=== PATIENT | male | born 1940 | race Caucasian/White ===

== ENCOUNTER 2017-04-15 19:59 | Inpatient (IN) ==
[2017-04-15] MEDS ORDERED: LEVOFLOXACIN 750 MG TABLET PO STA (20:55)
[2017-04-15] MEDS ORDERED: SODIUM CHLORIDE 0.9% 500 ML IV STA (20:55)
[2017-04-15 21:10] LABS: Basophils % 0.1 % (0.0-0.8); Hematocrit 39.2 VOL% (42.0-52.0); Hemoglobin 13.8 GM/DL (14.0-18.0); Immature Granulocytes Absolute 0.16 #; Lymphocytes # 0.9 10*3/uL (1.4-4.0); Lymphocytes % 5.6 % (21.2-54.2); Mean Corpuscular HGB Conc 35.2 GM/DL (32-36); Mean Corpuscular Hemoglobin 31 PG (27-34); Mean Corpuscular Volume 87.5 FL (87-102); Mean Platelet Volume 11.1 FL (9.6-12.0); Monocytes % 6.4 % (1.7-12.7); Neutrophils # 13.9 10*3/uL (1.4-7.4); Neutrophils % 86.9 % (38.7-73.9); Platelet Count 139 T/CUMM (130-400); Red Blood Count 4.48 MC/CUMM (3.8-5.5); Red Cell Distribution Width 12.5 % (9.3-17.3)
--- NOTE | 2017-04-15 21:12 | XRay Report ---
Portable chest July 15, 2017 at 2056 hours Indication: Shortness of breath, cough, fever Comparison: February 15, 2014 Findings: Cardiomediastinal contours are normal. Chronic interstitial changes bilaterally. No superimposed consolidative or congestive process. No acute osseous abnormalities. Visualized upper abdomen demonstrates no acute pathology. Impression: No acute cardiopulmonary findings PROCEDURE INTERPRETED AT [facility] DEPARTMENT OF RADIOLOGY Final Report Signed by: Maurice Mckenzie
[2017-04-15 21:22] LABS: PT Patient Result 11.1 SECS
[2017-04-15 21:41] LABS: Albumin 3.6 G/DL (3.4-5.0); Bilirubin,Total 0.8 MG/DL (0.2-1.0); Calcium 8.8 MG/DL (8.5-10.1); Osmolality,Calculated 285.3 MOS/KG (273-304); Potassium 3.6 MMOL/L (3.5-5.1); Total Protein 6.4 G/DL (6.4-8.3)
[2017-04-15] MEDS ORDERED: LEVOFLOXACIN INJ 750 MG in PREMIX 1 EACH IV STA (21:45)
[2017-04-15] MEDS ORDERED: LEVOFLOXACIN INJ 150 ML IV ONE (21:48)
--- NOTE | 2017-04-15 22:31 | Emergency Department Note ---
Shady Orr Brooke, am scribing for, and in the presence of, Lex Senior MD 21:06. Parrish Orr Frederick, MD, personally performed the services described in this documentation, ascribed by Jeanie Caruso in my presence, and it is both accurate and complete . Arrival - Arrival Chief Complaint: Fever Stated Complaint: Fever ED Nursing Triage Note: Pt was at home when he began having nausea and vomiting today around 3:30 pm. Pt was also having chills. Temp was 102.5 and fever went away after two tylenol. Pt also has redness to his left lower extremity that started today. Filters Assembler stated that patient had altered mental status at home but he returned to neuro baseline after being given NS. Mode of Arrival: Stretcher Limitations: No Limitations Source: Patient, Significant other, EMS, RN Notes Reviewed Time Seen by Provider: 04/15/17 20:43 - History of Present Illness HPI Narrative: Patient is a 76 year old male brought into the ED by EMS with c/o nausea and vomiting that started today. Patient has vomited two times. says he did not have fever, earlier today, but EMS reported that he had a temperature of 102.5. Patient's temperature during triage was 101. Patient says he has had the chills and is shaking all over. Patient has a productive cough with white mucous. He started having erythema to the left lower leg today. says she gave Patient some Tylenol around 1530 today. Patient denies having any dysuria, back pain, abdominal pain,, or calf pain. Family says Patient had a kidney infection, in January, and had cellulitis develop in his legs. Patient had to receive IV abx. He says he did have abdominal CT, two weeks go, and says he has an extended bladder and enlarged prostate. Patient has been having nocturia about three times a night. He has PMHx of HTN, peripheral neuropathy, and diabetes. Patient's Urologist is Dr. Alcocer. His Primary Care Provider is Amber Crandall. Allergies/Adverse Reactions: Allergies Allergy/AdvReac Type Severity Reaction Status Date / Time No Known Allergies Allergy Unverified 04/15/17 20:18 Home Medications: Home Medications Medication Instructions Recorded Confirmed Type Aspirin EC Tab 81 mg PO DAILY 04/15/17 04/15/17 History Furosemide Tab [Lasix Tab] 40 mg PO DAILY 04/15/17 04/15/17 History Glimepiride 4 mg PO BID 04/15/17 04/15/17 History Latanoprost [Latanoprost 0.005 % 1 drop BOTH EYES BEDTIME 04/15/17 04/15/17 History Oph Soln] Memantine [Namenda] 10 mg PO BID 04/15/17 04/15/17 History Potassium Chloride 20 meq PO DAILY 04/15/17 04/15/17 History Pravastatin Sodium 40 mg PO BEDTIME 04/15/17 04/15/17 History Pregabalin [Lyrica] 150 mg PO BID 04/15/17 04/15/17 History Rivastigmine Tartrate 3 mg PO BID 04/15/17 04/15/17 History [Rivastigmine] Sertraline HCl 50 mg PO BEDTIME 04/15/17 04/15/17 History Tamsulosin HCl 0.4 mg PO DIRECTED 04/15/17 04/15/17 History amLODIPine [Norvasc] 2.5 mg PO DAILY 04/15/17 04/15/17 History metFORMIN [Glucophage] 500 mg PO BID W/MEALS 04/15/17 04/15/17 History Review of System - Review of System 12 point system: reviewed and no additional remarkable complaints except as stated - Review of System Constitutional: Present: chills, fever, other (shaking all over) Respiratory: Absent: respiratory distress Gastrointestinal: Present: nausea, vomiting Genitourinary male: Present: other (nocturia) Skin: Present: other (erythema left lower leg). Absent: rash Medical,Surgical,& Family Hx - Medical History Cardio: History of: Hypertension Neurology: History of: Peripheral Neuropathy Endocrine: History of: Diabetes Mellitus (IDDM), Diabetes Mellitus (NIDDM) - Social History Smoking Status: Never smoker Frequency of Alcohol Use: None Type of Drug Use: None Exam Vital Signs: Vital Signs Temperature 97.5 F L 04/16/17 00:58 Pulse Rate 87 04/16/17 00:58 Respiratory Rate 18 04/16/17 00:58 Blood Pressure 106/57 04/16/17 00:58 O2 Sat by Pulse Oximetry 93 L 04/15/17 20:09 - General General appearance: alert, in no apparent distress - Head Head exam: Present: atraumatic, normocephalic - Eye Eye exam: Present: normal appearance, PERRL, EOMI - ENT ENT exam: Present: normal exam - Neck Neck exam: Present: normal inspection - Chest Chest inspection: Present: normal inspection, symmetric chest wall rise - Respiratory Respiratory exam: Present: normal lung sounds bilaterally - Cardiovascular Cardiovascular exam: Present: regular rate, normal rhythm, normal heart sounds. Absent: murmur - Abdominal Exam Abdominal exam: Present: soft, normal bowel sounds. Absent: distention, tenderness - Extremities Exam Extremities exam: Present: other (Negative trinidad's sign. Good pulses.) - Back Exam Back exam: Present: normal inspection. Absent: CVA tenderness (R), CVA tenderness (L) - Neurological Exam Neurological exam: Present: alert, oriented X3 - Psychiatric Psychiatric exam: Present: normal affect, normal mood - Skin Skin exam: Present: warm, dry, intact, other (Mild erythema left leg. Febrile.) Course Course Narrative: The patient had a white count of 16,000 and an unremarkable urinalysis. The x- ray of the chest did not show any infiltrates. The patient's fever may be secondary to his cellulitis. He was given Levaquin IV. He is now being given vancomycin IV. He will be admitted for further evaluation and treatment. I discussed the patient with the hospitalist. Results - Labs CBC & BMP: 04/15/17 21:01 04/15/17 21:01 Lab Results: I have reviewed the patients labs Labs: Laboratory Tests 04/15/17 04/15/17 21:01 21:01 WBC 16.0 H RBC 4.48 Hgb 13.8 L Hct 39.2 L MCV 87.5 MCH 31 MCHC 35.2 RDW 12.5 Plt Count 139 MPV 11.1 Neut % (Auto) 86.9 H Lymph % (Auto) 5.6 L [place] % (Auto) 6.4 Eos % (Auto) 0.0 Baso % (Auto) 0.1 Neut # (Auto) 13.9 H Lymph # (Auto) 0.9 L [place] # (Auto) 1.0 H Eos # (Auto) 0.0 Baso # (Auto) 0.0 Immature Gran % 1.0 Nucleated RBC % 0.0 Immature Gran # 0.16 Nucleated RBCs # 0.00 Immature Plt Fraction 0.0 INR 1.0 PT Patient/Control Mix 11.1 Laboratory Tests 04/15/17 21:01 Sodium 141 Potassium 3.6 Chloride 104 Carbon Dioxide 28 Anion Gap 12.6 BUN 21 H Creatinine 1.30 GFR Calculation 66 BUN/Creatinine Ratio 16.00 Glucose 137 H Calculated Osmolality 285.3 Calcium 8.8 Total Bilirubin 0.80 AST 21 ALT 21 Alkaline Phosphatase 82 Lactate Dehydrogenase 203 C-Reactive Protein 0.91 H Total Protein 6.4 Albumin 3.6 Globulin 2.8 Albumin/Globulin Ratio 1.2 Amylase 23 L Lipase 82.0 Microbiology 04/15/17 22:15 Throat Group A Streptococcus Rapid Screen - Final Negative for Grp A Strep Ag 04/15/17 22:14 Nasal Aspirate Influenza Types A,B Antigen (CARLOS) - Final Negative for Influenza A Ag Negative for Influenza B Ag Laboratory Tests 04/15/17 21:05 Urine Color Yellow Urine Appearance Slightly hazy Urine pH 5.0 Ur Specific [place] 1.012 Urine Protein Negative Urine Glucose (UA) Negative Urine Ketones Negative Urine Blood Negative Urine Nitrate Negative Urine Bilirubin Negative Urine Urobilinogen < 2.0 H Urine Leukocytes Negative Urine RBC 2 Urine WBC 2 Hyaline Casts 5 Urine Mucus Many Urine Sperm Many Ur Culture Indicated? Not indicated - Diagnostic Findings Procedure: Chest x-ray: report reviewed by me (No acute cardiopulmonary findings.) Disposition Clinical Impression: Cellulitis, Fever, Sepsis
[2017-04-15 23:55] LABS: Apearance,Urine Slightly Hazy (Clear); Bilirubin,Urine Negative (Negative); Blood, Urine Negative (Negative); Glucose,Urine (UA) Negative (Negative); Hyaline Casts,Urine 5 /LPF (0-3); Ketones,Urine Negative (Negative); Mucus,Urine Many /LPF (Occasional); Nitrite,Urine Negative (Negative); Protein,Urine Negative; RBC,Urine 2 /HPF (0-4); Sperm,Urine Many /HPF (Negative); Urine Color Yellow (Yellow); Urine Specific Gravity 1.012 (1.001-1.035); Urine Urobilinogen < 2.0 EU/DL (0.2-1.0); WBC,Urine 2 /HPF (0-6)
[2017-04-16] MEDS ORDERED: VANCOMYCIN (NICU) 1,000 MG in SYRINGE 1 EACH IV SCH (01:00)
[2017-04-16] MEDS ORDERED: VANCOMYCIN INJ 1,000 MG in SODIUM CHLORIDE 0.9% 250 ML IV SCH (01:30)
[2017-04-16] MEDS ORDERED: ACETAMINOPHEN 325 MG TABLET PO PRN (02:49)
[2017-04-16] MEDS ORDERED: DEXTROSE 50% 25 GM/50 ML SYRINGE IV PRN (02:49)
[2017-04-16] MEDS ORDERED: ONDANSETRON 4 MG/2 ML VIAL IV PRN (02:49)
[2017-04-16] MEDS ORDERED: GLUCAGON 1 MG VIAL IM PRN (02:49)
[2017-04-16] MEDS ORDERED: BISACODYL 5 MG TABLET PO PRN (02:49)
--- NOTE | 2017-04-16 03:13 | Hospitalist History & Physical ---
Assessment and Plan - Time spent with patient Time spent with patient: Greater than 30 minutes (1) Sepsis Status: Acute Assessment and plan: Admit to hospitalist services. Levaquin and Vancomycin given in ED. Clindamycin 600 mg IV Q8 hours. Ceftriaxone 2 gm IV Q24 hours. ASO titer. Blood cultures performed in ED; follow. Repeat CBC in AM. Current Visit: Yes (2) Cellulitis Status: Acute Assessment and plan: As above. Current Visit: Yes (3) Fever Status: Acute Assessment and plan: As above. Tylenol 650 mg PO Q4 hours PRN. Current Visit: Yes (4) Hypertension Status: Chronic Assessment and plan: BP stable right now. Hold home BP meds for now. Monitor. Current Visit: Yes (5) Diabetes Status: Chronic Assessment and plan: Accuchecks ACHS. Continue home meds. Metformin 1000 mg BID. Glimepiride 4 mg PO BID. SSI ACHS with Humulin R. Recheck BMP in am. Diabetic diet. Current Visit: Yes (6) DVT prophylaxis Status: Acute Assessment and plan: Lovenox 40 mg SQ daily. Current Visit: Yes History of Present Illness Chief complaint: sepsis, cellulitis History of present illness: Mr. Russell is a 76 year old male with a past medical history of NIDDM, HTN, and peripheral neuropathy who presented to the ED today with complaints of fever, vomiting x 3 episodes, chills, and confusion that started around lunchtime the day prior. He denies cough, MOTA, sore throat, diarrhea, and abdominal pain. In the ED, his urine was unremarkable, but he was found to have LLE redness and warmth. His son states that the redness and warmth was not present prior to the onset of chills and fever. Hospitalist services were consulted, and the patient will be admitted for further evaluation and treatment. Home Medications Medication Instructions Recorded Confirmed Type Aspirin EC Tab 81 mg PO DAILY 04/15/17 04/16/17 History Furosemide Tab [Lasix Tab] 40 mg PO DAILY 04/15/17 04/16/17 History Glimepiride 4 mg PO BID 04/15/17 04/16/17 History Latanoprost [Latanoprost 0.005 % 1 drop BOTH EYES BEDTIME 04/15/17 04/16/17 History Oph Soln] Memantine [Namenda] 10 mg PO BID 04/15/17 04/16/17 History Potassium Chloride 20 meq PO DAILY 04/15/17 04/16/17 History Pravastatin Sodium 40 mg PO BEDTIME 04/15/17 04/16/17 History Pregabalin [Lyrica] 150 mg PO BID 04/15/17 04/16/17 History Rivastigmine Tartrate 1.5 mg PO BID 04/15/17 04/16/17 History [Rivastigmine] Sertraline HCl 50 mg PO BEDTIME 04/15/17 04/16/17 History Tamsulosin HCl 0.4 mg PO DIRECTED 04/15/17 04/16/17 History amLODIPine [Norvasc] 2.5 mg PO BID 04/15/17 04/16/17 History metFORMIN [Glucophage] 1,000 mg PO BID W/MEALS 04/15/17 04/16/17 History Allergies Allergy/AdvReac Type Severity Reaction Status Date / Time No Known Allergies Allergy Unverified 04/15/17 20:18 Medical,Surgical,& Family Hx - Medical History Cardio: History of: Hypertension Neurology: History of: Peripheral Neuropathy No history of: Cerebrovascular Accident Endocrine: History of: Diabetes Mellitus (NIDDM) Respiratory: No history of: Asthma, COPD - Surgical History Additional Surgical History: Hemorrhoidectomy - Family History Family History: Reports;: Family Diabetes, Family Hypertension - Social History Smoking Status: Never smoker Have you smoked in the last 12 months: No Frequency of Alcohol Use: None Type of Drug Use: None Marital Status: Lives With:: Spouse Functional capacity: independent ambulation 12 point system: reviewed and no additional remarkable complaints except as stated - Constitutional Constitutional: Present: chills, fever(s), weakness - EENT Eyes: Absent: blurry vision, diplopia Ears: Absent: decreased hearing, ear discharge Nose, mouth and throat: Absent: headache(s), nasal congestion, sore throat - Cardiovascular Cardiovascular: Absent: chest pain at rest, chest pain with activity, dyspnea, edema, orthopnea, palpitations - Respiratory Respiratory: Absent: cough, dyspnea, wheezing - Gastrointestinal Gastrointestinal: Present: constipation, nausea, vomiting. Absent: abdominal pain, diarrhea - Genitourinary Genitourinary: Absent: dysuria, flank pain - Musculoskeletal Musculoskeletal: Present: muscle weakness, other (redness and warmth of LLE). Absent: arthralgias, back pain, joint swelling, myalgias - Neurological Neurological: Present: confusion. Absent: numbness, paresthesias - Psychiatric Psychiatric: Absent: anxiety, depression - Endocrine Endocrine: Absent: cold intolerance, polydipsia, polyphagia, polyuria - Hematologic/Lymphatic Hematologic/Lymphatic: Absent: easy bleeding, easy bruising Exam - Constitutional Vitals: Period Temp Pulse Resp BP Sys/Stevenson Pulse Ox Last 24 Hr 97.5 F-101 F 87-92 18-23 106-129/57-67 93 Exam: Constitutional System: Febrile. Awake, alert and oriented x 3. No distress. No tremulousness. Head: Normocephalic, atraumatic. Ears, Nose and Throat System: No pain or tenderness. No epistaxis or discharge Eyes System: Pupils equal, round, and reactive. Extraocular muscles intact. Neck: Supple, without adenopathy, No jugular venous distention. No thyromegaly, neck mass, or prior surgery apparent. Respiratory System: Chest clear to auscultation. Cardiovascular System: Heart with regular rate and rhythm. No murmur. GI System: Abdomen soft, nontender. Normo active bowel sounds present. Musculoskeletal System: LLE redness and warmth noted; non-tender. Limbs with no pedal edema. Full distal pulses. Normal capillary refill. Neurological System: No discernable sensory deficit. No aphasia Psychiatric System: Conversation is rational Results - Labs CBC & BMP: 04/15/17 21:01 04/15/17 21:01 Lab Results: I have reviewed the past 24 hour labs - Diagnostic Findings Procedure: Chest x-ray: report reviewed by me (Report reviewed. No acute cardiopulmonary findings. )
[2017-04-16] MEDS: PREGABALIN 75 MG CAPSULE PO SCH ×3 (03:42→21:33)
[2017-04-16] MEDS ORDERED: VANCOMYCIN INJ 500 MG in SODIUM CHLORIDE 0.9% 100 ML IV ONE (05:00)
[2017-04-16] MEDS: CLINDAMYCIN INJ 600 MG in PREMIX 1 EACH IV SCH ×3 (05:52→21:31)
[2017-04-16 07:12] LABS: Basophils % 0.2 % (0.0-0.8); Hematocrit 36.5 VOL% (42.0-52.0); Hemoglobin 12.8 GM/DL (14.0-18.0); Immature Granulocytes % 1.7 %; Immature Granulocytes Absolute 0.27 #; Lymphocytes # 0.5 10*3/uL (1.4-4.0); Lymphocytes % 3.2 % (21.2-54.2); Mean Corpuscular HGB Conc 35.1 GM/DL (32-36); Mean Corpuscular Hemoglobin 31 PG (27-34); Mean Corpuscular Volume 88.4 FL (87-102); Mean Platelet Volume 11.3 FL (9.6-12.0); Monocytes # 0.6 10*3/uL (0.11-0.8); Monocytes % 3.4 % (1.7-12.7); Neutrophils # 14.7 10*3/uL (1.4-7.4); Neutrophils % 91.5 % (38.7-73.9); Platelet Count 124 T/CUMM (130-400); Red Blood Count 4.13 MC/CUMM (3.8-5.5); Red Cell Distribution Width 12.8 % (9.3-17.3); White Blood Count 16.1 T/CUMM (4-12)
[2017-04-16 07:37] LABS: Band Neutrophils 6 % (0-10); Giant Platelets Few; Hypochromasia 1+; Lymphocytes 4 % (20-55); Ovalocytes Slight; Platelet Estimate Normal; Segmented Neutrophils 88 % (50-85); Total Cells Counted 100
[2017-04-16 07:42] LABS: Calcium 8.1 MG/DL (8.5-10.1); Osmolality,Calculated 281.7 MOS/KG (273-304); Potassium 3.6 MMOL/L (3.5-5.1)
[2017-04-16] MEDS ORDERED: metFORMIN 500 MG TABLET PO SCH (08:00)
[2017-04-16] MEDS: INSULIN REGULAR 100 UNIT/ML SUBCUT SCH ×4 (08:31→21:31)
[2017-04-16] MEDS: GLIMEPIRIDE 4 MG TABLET PO SCH ×2 (08:32→21:33)
[2017-04-16] MEDS: metFORMIN 500 MG TABLET PO SCH ×2 (08:32→17:22)
[2017-04-16] MEDS: MEMANTINE 10 MG TABLET PO SCH ×2 (08:33→21:32)
[2017-04-16] MEDS: ASPIRIN EC 81 MG TABLET PO SCH (08:33)
[2017-04-16] MEDS: PANTOPRAZOLE 40 MG TABLET PO SCH (08:34)
[2017-04-16] MEDS: ENOXAPARIN 40 MG/0.4 ML SYRINGE SUBCUT SCH (08:34)
[2017-04-16] MEDS: cefTRIAXone 2,000 MG in SODIUM CHLORIDE 0.9% 100 ML IV SCH (08:40)
--- NOTE | 2017-04-16 08:55 | Hospitalist Progress Note ---
Assessment and Plan (1) BPH (benign prostatic hyperplasia) Status: Acute Assessment and plan: He is not having difficulty voiding. I will consult Dr. Brown for further evaluation. Current Visit: Yes (2) Cellulitis Status: Acute Assessment and plan: He is presently being treated with intravenous ceftriaxone and clindamycin. Current Visit: Yes Qualifiers: Site of cellulitis of extremity: lower extremity Laterality: left (3) Sepsis Status: Acute Assessment and plan: He is stable at the present time. His blood pressure is 138/63, HR 85/min, and temperature 98.5F. He continues to be treated with intravenous ceftriaxone and clindamycin. Current Visit: Yes Qualifiers: Sepsis type: sepsis due to unspecified organism Qualified Code(s): A41.9 - Sepsis, unspecified organism (4) Diabetes Status: Chronic Assessment and plan: His blood glucose is well controlled on the present regimen. His blood glucose this morning is 170. Current Visit: Yes Qualifiers: Diabetes mellitus type: type 2 Hospitalist: Subjective Interval history: Patient was admitted to the hospital last night with cellulitis of the left lower extremity and sepsis. He was begun last night on intravenous ceftriaxone and clindamycin. He is a previously known history of type 2 diabetes mellitus for which she has been treated with glimepiride and metformin. Both medications were continued and he was begun on before meals at bedtime regular insulin sliding scale coverage. He has newly diagnosed BPH for which she is scheduled in [address] Benitez. He is not having difficulty voiding. Exam - Constitutional Vitals: Period Temp Pulse Resp BP Sys/Stevenson Pulse Ox Last 24 Hr 97.5 F-101 F 82-92 16-23 106-149/50-71 90-98 General appearance: no acute distress - Head Head exam: Present: normal inspection - Neck Neck exam: Present: normal inspection - Respiratory Respiratory exam: Present: clear to auscultation bilaterally - Cardiovascular Cardiovascular exam: Present: regular rate and rhythm - GI/Abdominal GI/Abdominal exam: Present: normal bowel sounds, soft, other (Nontender with no palpable masses or hepatosplenomegaly.) - Extremities Exam Extremities exam: Present: other (Erythema and mild edema of the left lower extremity from the mid calf to the foot.) - Neurological Exam Neurological exam: Present: alert, oriented X3 - Skin Skin exam: Present: normal color, warm, intact Results - Labs CBC & BMP: 04/16/17 06:52 04/16/17 06:52
--- NOTE | 2017-04-16 09:22 | EKG Report ---
Stationary ECG Study [facility] ER Test Date: 04/15/2017 9:04:27 PM Pat Name: DAISHA JIANG Department: Room: 245 Gender: M [employer] Vendor: : 1940 Requested by: Lex Senior Order Number: [id number] Reading MD: DEDE BOYCE Intervals [place] Rate: 89 P: 63 DE: 195 QRS: 75 QRSD: 150 T: 48 QT: 377 QTc: 423 Interpretive Statements SINUS RHYTHM RIGHT BUNDLE BRANCH BLOCK Electronically Signed On 04-16-17 16:16:12 CDT by DEDE BOCYE [email or web address]
[2017-04-16] MEDS: RIVASTIGMINE 3 MG CAPSULE PO SCH ×2 (09:35→21:32)
[2017-04-16] MEDS: TAMSULOSIN 0.4 MG CAPSULE PO SCH (09:36)
--- NOTE | 2017-04-16 13:31 | Urology Consultation ---
History of Present Illness - Data of Consult Consult date: 04/16/17 - Consult Narrative History of present illness: Mr. Russell is a 76 year old male The patient is known to me this 76-year-old white male has BPH and is on Flomax and is seen yearly for prostate screening. He was due to be seen this year apparently. He is currently on Flomax and denies any difficulty with voiding and his urinalysis and creatinine are normal. He is given a new prescription for Flomax and I will do his screening PSA CC: Brad Quintanilla - Home Medications and Allergies Home Medications: Home Medications Medication Instructions Recorded Confirmed Type Aspirin EC Tab 81 mg PO DAILY 04/15/17 04/16/17 History Furosemide Tab [Lasix Tab] 40 mg PO DAILY 04/15/17 04/16/17 History Glimepiride 4 mg PO BID 04/15/17 04/16/17 History Latanoprost [Latanoprost 0.005 % 1 drop BOTH EYES BEDTIME 04/15/17 04/16/17 History Oph Soln] Memantine [Namenda] 10 mg PO BID 04/15/17 04/16/17 History Potassium Chloride 20 meq PO DAILY 04/15/17 04/16/17 History Pravastatin Sodium 40 mg PO BEDTIME 04/15/17 04/16/17 History Pregabalin [Lyrica] 150 mg PO BID 04/15/17 04/16/17 History Rivastigmine Tartrate 1.5 mg PO BID 04/15/17 04/16/17 History [Rivastigmine] Sertraline HCl 50 mg PO BEDTIME 04/15/17 04/16/17 History Tamsulosin HCl 0.4 mg PO DAILY 04/15/17 04/16/17 History amLODIPine [Norvasc] 2.5 mg PO BID 04/15/17 04/16/17 History metFORMIN [Glucophage] 1,000 mg PO BID W/MEALS 04/15/17 04/16/17 History Allergies/Adverse Reactions: Allergies Allergy/AdvReac Type Severity Reaction Status Date / Time No Known Allergies Allergy Unverified 04/15/17 20:18 Medical,Surgical,& Family Hx - Medical History Cardio: History of: Hypertension Psychological: No history of: Anxiety Disorders Neurology: History of: Peripheral Neuropathy No history of: Cerebrovascular Accident HEENT: History of: Glaucoma Endocrine: History of: Diabetes Mellitus (IDDM), Diabetes Mellitus (NIDDM) Respiratory: No history of: Asthma, COPD Genitourinary: No history of: Bladder Problem Musculoskeletal: No history of: Back/Neck Problems Hematology: No history of: Blood Transfusion Reaction - Surgical History HEENT Surgeries: Surgical HX of: Eye Surgery (cataract surgery) Abdominal Surgeries: Patient denies: Abdominal Surgery - Family History Family History: Reports;: Family Diabetes, Family Hypertension - Social History Smoking Status: Never smoker Frequency of Alcohol Use: None Type of Drug Use: None Exam - Constitutional Vitals: Period Temp Pulse Resp BP Sys/Stevenson Pulse Ox Last 24 Hr 97.5 F-101 F 80-92 16-23 106-149/50-71 90-98 Results - Labs CBC & BMP: 04/16/17 06:52 04/16/17 06:52
[2017-04-16] MEDS ORDERED: VANCOMYCIN INJ 1,500 MG in SODIUM CHLORIDE 0.9% 500 ML IV SCH (16:00)
[2017-04-16] MEDS ORDERED: PRAVASTATIN 40 MG TABLET PO SCH (21:00)
[2017-04-16] MEDS ORDERED: LATANOPROST 0.005% OPH SOLN 2.5 ML BOTTLE BOTH EYES SCH (21:00)
[2017-04-16] MEDS ORDERED: SERTRALINE 50 MG TABLET PO SCH (21:00)
[2017-04-16] MEDS: amLODIPine 2.5 MG TABLET PO SCH (21:33)
[2017-04-17 03:35] LABS: Basophils % 0.3 % (0.0-0.8); Eosinophils % 0.1 % (0.00-10.9); Hematocrit 34.8 VOL% (42.0-52.0); Hemoglobin 11.9 GM/DL (14.0-18.0); Immature Granulocytes % 0.6 %; Immature Granulocytes Absolute 0.05 #; Lymphocytes # 1.5 10*3/uL (1.4-4.0); Lymphocytes % 17.3 % (21.2-54.2); Mean Corpuscular HGB Conc 34.2 GM/DL (32-36); Mean Corpuscular Hemoglobin 30 PG (27-34); Mean Corpuscular Volume 88.8 FL (87-102); Mean Platelet Volume 11.2 FL (9.6-12.0); Monocytes # 0.6 10*3/uL (0.11-0.8); Monocytes % 6.6 % (1.7-12.7); Neutrophils # 6.6 10*3/uL (1.4-7.4); Neutrophils % 75.1 % (38.7-73.9); Platelet Count 104 T/CUMM (130-400); Red Blood Count 3.92 MC/CUMM (3.8-5.5); White Blood Count 8.8 T/CUMM (4-12)
[2017-04-17 03:59] LABS: Platelet Estimate Adequate
[2017-04-17 04:02] LABS: Calcium 8.2 MG/DL (8.5-10.1); Osmolality,Calculated 275.8 MOS/KG (273-304); Potassium 3.5 MMOL/L (3.5-5.1)
[2017-04-17] MEDS: CLINDAMYCIN INJ 600 MG in PREMIX 1 EACH IV SCH ×2 (05:49→14:05)
--- NOTE | 2017-04-17 07:30 | Urology Progress Note ---
Urology - PN: Subj Interval history: PSA is 0.3. I have given the patient a new prescription for his Flomax I will recheck him in 1 year Exam - Constitutional Vitals: Period Temp Pulse Resp BP Sys/Stevenson Pulse Ox Last 24 Hr 96.3 F-98.8 F 62-85 18-20 114-138/58-73 90-95 Results - Labs CBC & BMP: 04/17/17 02:57 04/17/17 02:57 Specialty Discharge - Follow Up or Referrals Follow up with: Isma Alcocer MD [Physician] - 05/14/18 10:15 am
[2017-04-17] MEDS ORDERED: POTASSIUM CHLORIDE 20 MEQ TABLET PO SCH (09:00)
[2017-04-17] MEDS ORDERED: FUROSEMIDE 40 MG TABLET PO SCH (09:00)
--- NOTE | 2017-04-17 11:25 | Discharge Summary ---
Hospital Course - Hospital Course Hospital Course: Mr. Russell is a 76 year old male with a past medical history of NIDDM, HTN, and peripheral neuropathy who presented to the ED today with complaints of fever, vomiting x 3 episodes, chills, and confusion that started around lunchtime the day prior. He denies cough, MTOA, sore throat, diarrhea, and abdominal pain. In the ED, his urine was unremarkable, but he was found to have LLE redness and warmth. His son states that the redness and warmth was not present prior to the onset of chills and fever. He had a previous history of cellulitis of the LLE for which he was treated here 2 months [facility]. He was treated with IV clindamycin and ceftriaxone with significant improvement of his LLE. At the time of discharge, he felt well with no complaints. Diagnosis - Discharge Diagnosis (1) BPH (benign prostatic hyperplasia) Status: Chronic (2) Cellulitis Status: Acute (3) Sepsis Status: Acute (4) Diabetes Status: Chronic Specialty Discharge - Follow Up or Referrals Follow up with: Isma Alcocer MD [Physician] - 05/14/18 10:15 am Discharge Plan - Discharge Data Condition at Discharge: Stable Discharge Diet: advance to your usual diet Activity: resume usual activities as tolerated - Discharge Medications New Clindamycin Cap [Cleocin Cap] 300 mg PO Q8HR #42 capsule Continue Tamsulosin HCl 0.4 mg PO DAILY Rivastigmine Tartrate [Rivastigmine] 1.5 mg PO BID Latanoprost [Latanoprost 0.005 % Oph Soln] 1 drop BOTH EYES BEDTIME Aspirin EC Tab 81 mg PO DAILY Pravastatin Sodium 40 mg PO BEDTIME amLODIPine [Norvasc] 2.5 mg PO BID Glimepiride 4 mg PO BID Memantine [Namenda] 10 mg PO BID Furosemide Tab [Lasix Tab] 40 mg PO DAILY Pregabalin [Lyrica] 150 mg PO BID Sertraline HCl 50 mg PO BEDTIME metFORMIN [Glucophage] 1,000 mg PO BID W/MEALS Potassium Chloride 20 meq PO DAILY - Follow Up or Referral Follow Up: Isma Alcocer MD [Physician] - 05/14/18 10:15 am - Forms/Instructions Exam - Constitutional Vitals: Period Temp Pulse Resp BP Sys/Stevenson Pulse Ox Last 24 Hr 96.3 F-98.8 F 62-80 18-20 114-133/56-73 90-95 Discharge Results Procedures and tests throughout hospitalization: Pending Orders 04/15/17 20:55 Cell Count w Diff, Syn Fluid Stat 04/15/17 21:01 Blood Culture Stat 04/16/17 05:51 Antistrep-O Titer,Serum Routine Labs on day of discharge: Labs from last 24 hours 04/17/17 04/17/17 04/17/17 08:09 02:57 02:57 WBC 8.8 D RBC 3.92 Hgb 11.9 L Hct 34.8 L MCV 88.8 MCH 30 MCHC 34.2 RDW 13.0 Plt Count 104 L MPV 11.2 Neut % (Auto) 75.1 H Lymph % (Auto) 17.3 L [place] % (Auto) 6.6 Eos % (Auto) 0.1 Baso % (Auto) 0.3 Neut # (Auto) 6.6 Lymph # (Auto) 1.5 [place] # (Auto) 0.6 Eos # (Auto) 0.0 Baso # (Auto) 0.0 Immature Gran % 0.6 Nucleated RBC % 0.0 Immature Gran # 0.05 Nucleated RBCs # 0.00 Platelet Estimate Adequate Immature Plt Fraction 0.0 Anisocytosis Sodium 137 Potassium 3.5 Chloride 102 Carbon Dioxide 29 Anion Gap 9.5 BUN 23 H Creatinine 1.10 GFR Calculation 81 BUN/Creatinine Ratio 20.00 Glucose 85 POC Glucose 65 L Calculated Osmolality 275.8 Calcium 8.2 L PSA Diagnostic 04/16/17 04/16/17 04/16/17 20:44 15:42 13:49 WBC RBC Hgb Hct MCV MCH MCHC RDW Plt Count MPV Neut % (Auto) Lymph % (Auto) [place] % (Auto) Eos % (Auto) Baso % (Auto) Neut # (Auto) Lymph # (Auto) [place] # (Auto) Eos # (Auto) Baso # (Auto) Immature Gran % Nucleated RBC % Immature Gran # Nucleated RBCs # Platelet Estimate Immature Plt Fraction Anisocytosis Sodium Potassium Chloride Carbon Dioxide Anion Gap BUN Creatinine GFR Calculation BUN/Creatinine Ratio Glucose POC Glucose 165 H 84 Calculated Osmolality Calcium PSA Diagnostic 0.3 04/16/17 12:15 WBC RBC Hgb Hct MCV MCH MCHC RDW Plt Count MPV Neut % (Auto) Lymph % (Auto) [place] % (Auto) Eos % (Auto) Baso % (Auto) Neut # (Auto) Lymph # (Auto) [place] # (Auto) Eos # (Auto) Baso # (Auto) Immature Gran % Nucleated RBC % Immature Gran # Nucleated RBCs # Platelet Estimate Immature Plt Fraction Anisocytosis Sodium Potassium Chloride Carbon Dioxide Anion Gap BUN Creatinine GFR Calculation BUN/Creatinine Ratio Glucose POC Glucose 111 H Calculated Osmolality Calcium PSA Diagnostic Preliminary micro results at discharge 04/15/17 21:01 Blood Culture - Preliminary Blood Gram Positive Cocci 04/15/17 21:01 Blood Culture - Preliminary Blood Gram Positive Cocci DS: Provider Date of admission: 04/16/17 02:50 Primary care physician: Jani Clark DO Attending physician on admission: Jonnie Garcia MD Consults: 04/16/17 04:06 Consult to Pharmacy [CONS] Routine Reason for Pharmacy Consult: Dose/Manage Vancomycin 04/16/17 09:00 Consult to Physician [CONS] Routine Comment: BPH Consulting Provider: Isma Alcocer Consulting Provider Notified: No When should Consulting Provider be notified: Now Consult to Specialist Group: Urology When should Consulting Provider be notified: Now Person Notified: ARIELLE Date Notified: 04/16/17 Time Notified: 09:52 Discharging clinician: Brad Quintanilla
[2017-04-17] MEDS: PREGABALIN 75 MG CAPSULE PO SCH (12:00)
[2017-04-17] MEDS: INSULIN REGULAR 100 UNIT/ML SUBCUT SCH ×2 (12:00→14:09)
[2017-04-17] MEDS: GLIMEPIRIDE 4 MG TABLET PO SCH (12:01)
[2017-04-17] MEDS: RIVASTIGMINE 3 MG CAPSULE PO SCH (12:01)
[2017-04-17] MEDS: amLODIPine 2.5 MG TABLET PO SCH (12:02)
[2017-04-17] MEDS: PANTOPRAZOLE 40 MG TABLET PO SCH (12:02)
[2017-04-17] MEDS: MEMANTINE 10 MG TABLET PO SCH (12:02)
[2017-04-17] MEDS: ENOXAPARIN 40 MG/0.4 ML SYRINGE SUBCUT SCH (12:03)
[2017-04-17] MEDS: ASPIRIN EC 81 MG TABLET PO SCH (12:03)
[2017-04-17 12:04] VITALS: BP 126/59
[2017-04-17] MEDS: cefTRIAXone 2,000 MG in SODIUM CHLORIDE 0.9% 100 ML IV SCH (12:04)
[2017-04-17] MEDS: metFORMIN 500 MG TABLET PO SCH (12:19)
[2017-04-17] MEDS: TAMSULOSIN 0.4 MG CAPSULE PO SCH (12:20)
[2017-04-17] MEDS ORDERED: FUROSEMIDE 20 MG/2 ML VIAL IV ONE (15:20)
== END 2017-04-17 15:20 | disposition home or self-care (01) | DRG 872 ==
LOC: EDUNIT# → N.ED 19:59 → N.EDINP 04-16 02:50 → SUATTDRO 04-16 02:50 → N.2E 04-16 03:14
PROVIDERS: ADMIT Internal Medicine Infectious Disease

== ENCOUNTER 2022-05-08 15:19 | Inpatient (IN) ==
[2022-05-08 16:08] LABS: Basophils % 0.3 % (0.0-0.8); Hematocrit 41.6 VOL% (42.0-52.0); Hemoglobin 13.2 GM/DL (14.0-18.0); Immature Granulocytes % 0.4 %; Immature Granulocytes Absolute 0.03 #; Lymphocytes # 1.1 10*3/uL (1.4-4.0); Lymphocytes % 15.5 % (21.2-54.2); Mean Corpuscular HGB Conc 31.7 GM/DL (32-36); Mean Corpuscular Volume 89.1 FL (87-102); Mean Platelet Volume 12.1 FL (9.6-12.0); Monocytes # 0.8 10*3/uL (0.11-0.8); Monocytes % 11.1 % (1.7-12.7); Neutrophils % 72.7 % (38.7-73.9); Platelet Count 156 T/CUMM (130-400); Red Blood Count 4.67 MC/CUMM (3.8-5.5); Red Cell Distribution Width 14.3 % (9.3-17.3); White Blood Count 7.3 T/CUMM (4-12)
[2022-05-08] MEDS ORDERED: SODIUM CHLORIDE 0.9% 1,000 ML IV STA (16:26)
[2022-05-08 16:34] LABS: Alanine Aminotransferase 19 U/L (16-61); Albumin 3.7 G/DL (3.4-5.0); Alkaline Phosphatase 140 U/L (45-117); Aspartate Amino Transferase 30 U/L (0-37); Blood Urea Nitrogen 36 MG/DL (7-18); Calcium 9.5 MG/DL (8.5-10.1); Carbon Dioxide 28 MMOL/L (21-32); Chloride 98 MMOL/L (98-107); Glucose 239 MG/DL (74-106); Osmolality,Calculated 285.1 MOS/KG (273-304); Potassium 5.3 MMOL/L (3.5-5.1); Sodium 135 MMOL/L (136-145); Total Protein 7.8 G/DL (6.4-8.2)
[2022-05-08 16:53] LABS: Bilirubin,Urine Negative (Negative); Blood, Urine Negative (Negative); Glucose,Urine (UA) Negative (Negative); Ketones,Urine Negative (Negative); Protein,Urine Negative (Negative); Urine Appearance Slightly Cloudy (Clear); Urine Color Yellow (Yellow)
[2022-05-08 16:56] LABS: Bacteria,Urine Moderate /HPF (Few); Mucus,Urine Occasional /LPF (Occasional); RBC,Urine 5 /HPF (0-4); Squamous Epithelial Cell,Urine Few /HPF (0-10)
[2022-05-08 16:57] LABS: Nitrite,Urine Positive (Negative)
[2022-05-08] MEDS ORDERED: cefTRIAXone 1,000 MG in SODIUM CHLORIDE 0.9% 100 ML IV STA (17:00)
[2022-05-08 17:03] LABS: Barbiturates Screen,Urine Negative (Negative); Benzodiazepines Screen,Urine Negative (Negative); Cannabinoid Screen,Urine Negative (Negative); Opiate Screen,Urine Negative (Negative); Phencyclidine Screen,Urine Negative (Negative)
[2022-05-08] MEDS ORDERED: DEXTROSE 10% 250 ML BAG IV PRN (18:21)
[2022-05-08] MEDS ORDERED: GLUCAGON 1 MG VIAL IM PRN (18:21)
[2022-05-08] MEDS ORDERED: VANCOMYCIN INJ 750 MG in SODIUM CHLORIDE 0.9% 250 ML IV STA ×2 (18:25→21:01)
[2022-05-08] MEDS ORDERED: SODIUM POLYSTYRENE SULFATE 15 GM/60 ML BOTTLE RECTAL STA (18:27)
[2022-05-08] MEDS ORDERED: hydrALAZINE 20 MG/1 ML VIAL IV PRN (18:34)
[2022-05-08 19:00] LABS: % Iron Saturation 10.9 % (18-50)
[2022-05-08] MEDS: SODIUM CHLORIDE 0.45% 1,000 ML IV SCH (19:35)
[2022-05-08] MEDS: MEROPENEM 500 MG in SODIUM CHLORIDE 0.9% 100 ML IV SCH (20:15)
[2022-05-08] MEDS: ENOXAPARIN 30 MG/0.3 ML SYRINGE SUBCUT SCH (23:11)
[2022-05-09] MEDS: MEROPENEM 500 MG in SODIUM CHLORIDE 0.9% 100 ML IV SCH ×2 (04:23→17:07)
[2022-05-09 06:59] LABS: Basophils % 0.6 % (0.0-0.8); Eosinophils % 0.6 % (0.00-10.9); Hematocrit 38.7 VOL% (42.0-52.0); Hemoglobin 12.8 GM/DL (14.0-18.0); Immature Granulocytes % 0.8 %; Immature Granulocytes Absolute 0.04 #; Lymphocytes # 1.6 10*3/uL (1.4-4.0); Lymphocytes % 31.1 % (21.2-54.2); Mean Corpuscular HGB Conc 33.1 GM/DL (32-36); Mean Corpuscular Volume 87.6 FL (87-102); Mean Platelet Volume 11.8 FL (9.6-12.0); Monocytes # 0.9 10*3/uL (0.11-0.8); Monocytes % 18.4 % (1.7-12.7); Neutrophils % 48.5 % (38.7-73.9); Platelet Count 101 T/CUMM (130-400); Red Blood Count 4.42 MC/CUMM (3.8-5.5); White Blood Count 5.1 T/CUMM (4-12)
[2022-05-09 07:23] LABS: Band Neutrophils 1 % (0-10); Hypochromia Slight; Lymphocytes 31 % (20-55); Total Cells Counted 100
[2022-05-09 07:24] LABS: Microcytosis 1+; Ovalocytes Slight
[2022-05-09 07:28] LABS: Albumin 2.7 G/DL (3.4-5.0); Bilirubin,Total 0.4 MG/DL (0.20-1.00); Calcium 8.6 MG/DL (8.5-10.1); Osmolality,Calculated 287.3 MOS/KG (273-304); Risk Ratio 2.91; Thyroid Stimulating Hormone 0.574 uIU/ml (0.358-3.74); Total Protein 6.7 G/DL (6.4-8.2)
[2022-05-09 07:59] LABS: Folate 12.82 NG/ML (5.38-24.0)
[2022-05-09] MEDS: PANTOPRAZOLE 40 MG TABLET PO SCH (09:38)
[2022-05-09] MEDS ORDERED: cloNIDine 0.1 MG TABLET PO PRN (14:05)
[2022-05-09] MEDS: SODIUM CHLORIDE 0.45% 1,000 ML IV SCH (15:31)
[2022-05-09] MEDS: FERRIC GLUCONATE COMPLEX 125 MG in SODIUM CHLORIDE 0.9% 100 ML IV SCH (15:57)
[2022-05-09] MEDS ORDERED: VANCOMYCIN INJ 1,500 MG in SODIUM CHLORIDE 0.9% 500 ML IV SCH (21:00)
[2022-05-09] MEDS: ENOXAPARIN 30 MG/0.3 ML SYRINGE SUBCUT SCH (21:46)
[2022-05-09] MEDS: SIMVASTATIN 20 MG TABLET PO SCH (21:46)
[2022-05-09] MEDS: LATANOPROST 0.005% OPH SOLN 2.5 ML BOTTLE BOTH EYES SCH (21:46)
[2022-05-09] MEDS: PREGABALIN 100 MG CAPSULE PO SCH (21:46)
[2022-05-09] MEDS: MEMANTINE 10 MG TABLET PO SCH (21:46)
[2022-05-09] MEDS: OXYBUTYNIN XL 5 MG TABLET PO SCH (21:47)
[2022-05-09] MEDS: ZINC OXIDE PASTE 113 GM TUBE TOP SCH (21:47)
[2022-05-09] MEDS: RIVASTIGMINE 3 MG CAPSULE PO SCH (21:47)
[2022-05-10] MEDS: MEROPENEM 500 MG in SODIUM CHLORIDE 0.9% 100 ML IV SCH ×3 (02:14→16:27)
[2022-05-10] MEDS: FERRIC GLUCONATE COMPLEX 125 MG in SODIUM CHLORIDE 0.9% 100 ML IV SCH (09:27)
[2022-05-10] MEDS: RIVASTIGMINE 3 MG CAPSULE PO SCH ×2 (09:29→21:09)
[2022-05-10] MEDS: MEMANTINE 10 MG TABLET PO SCH ×2 (09:29→21:09)
[2022-05-10] MEDS: PARoxetine 20 MG TABLET PO SCH (09:29)
[2022-05-10] MEDS: SODIUM CHLORIDE 0.45% 1,000 ML IV SCH ×2 (09:29→10:51)
[2022-05-10] MEDS: POLYETHYLENE GLYCOL POWDER 17 GM PACK PO SCH (09:29)
[2022-05-10] MEDS: PREGABALIN 100 MG CAPSULE PO SCH ×2 (09:29→21:08)
[2022-05-10] MEDS: PANTOPRAZOLE 40 MG TABLET PO SCH (09:29)
[2022-05-10] MEDS: CALCITONIN NASAL SPRAY 3.7 ML BOTTLE ONE NARE SCH (10:51)
[2022-05-10] MEDS: ZINC OXIDE PASTE 113 GM TUBE TOP SCH ×2 (10:51→21:09)
[2022-05-10] MEDS: amLODIPine 10 MG TABLET PO SCH (16:27)
[2022-05-10] MEDS: OXYBUTYNIN XL 5 MG TABLET PO SCH (21:08)
[2022-05-10] MEDS: SIMVASTATIN 20 MG TABLET PO SCH (21:08)
[2022-05-10] MEDS: LATANOPROST 0.005% OPH SOLN 2.5 ML BOTTLE BOTH EYES SCH (21:09)
[2022-05-10] MEDS: ENOXAPARIN 30 MG/0.3 ML SYRINGE SUBCUT SCH (21:09)
[2022-05-11] MEDS: MEROPENEM 500 MG in SODIUM CHLORIDE 0.9% 100 ML IV SCH ×2 (00:51→08:42)
[2022-05-11 04:14] LABS: Basophils % 0.2 % (0.0-0.8); Eosinophils # 0.1 10*3/uL (0.0-0.87); Eosinophils % 2.7 % (0.00-10.9); Hematocrit 36.4 VOL% (42.0-52.0); Hemoglobin 12.3 GM/DL (14.0-18.0); Immature Granulocytes % 0.2 %; Immature Granulocytes Absolute 0.01 #; Lymphocytes # 1.6 10*3/uL (1.4-4.0); Lymphocytes % 38.1 % (21.2-54.2); Mean Corpuscular HGB Conc 33.8 GM/DL (32-36); Mean Corpuscular Volume 86.9 FL (87-102); Mean Platelet Volume 11.2 FL (9.6-12.0); Monocytes # 0.5 10*3/uL (0.11-0.8); Monocytes % 12.8 % (1.7-12.7); Red Blood Count 4.19 MC/CUMM (3.8-5.5); Red Cell Distribution Width 13.5 % (9.3-17.3); White Blood Count 4.2 T/CUMM (4-12)
[2022-05-11 04:15] LABS: Platelet Count 125 T/CUMM (130-400)
[2022-05-11] MEDS: SODIUM CHLORIDE 0.45% 1,000 ML IV SCH (04:35)
[2022-05-11 04:46] LABS: Calcium 8.5 MG/DL (8.5-10.1); Osmolality,Calculated 277.8 MOS/KG (273-304); Potassium 3.9 MMOL/L (3.5-5.1)
[2022-05-11] MEDS: POLYETHYLENE GLYCOL POWDER 17 GM PACK PO SCH (08:38)
[2022-05-11] MEDS: amLODIPine 10 MG TABLET PO SCH (08:39)
[2022-05-11] MEDS: RIVASTIGMINE 3 MG CAPSULE PO SCH (08:39)
[2022-05-11] MEDS: PANTOPRAZOLE 40 MG TABLET PO SCH (08:39)
[2022-05-11] MEDS: MEMANTINE 10 MG TABLET PO SCH (08:39)
[2022-05-11] MEDS: PREGABALIN 100 MG CAPSULE PO SCH (08:39)
[2022-05-11] MEDS: PARoxetine 20 MG TABLET PO SCH (08:39)
[2022-05-11] MEDS: CALCITONIN NASAL SPRAY 3.7 ML BOTTLE ONE NARE SCH (08:45)
[2022-05-11] MEDS: ZINC OXIDE PASTE 113 GM TUBE TOP SCH (08:45)
[2022-05-11] MEDS: FERRIC GLUCONATE COMPLEX 125 MG in SODIUM CHLORIDE 0.9% 100 ML IV SCH (09:40)
[2022-05-11 10:41] LABS: Mycoplasma pneumoniae Ab Inter SEE COMMENTS; Mycoplasma pneumoniae Ab, IgG Positive (Negative); Mycoplasma pneumoniae Ab, IgM Negative (Negative)
[2022-05-11] MEDS ORDERED: FOSFOMYCIN 3 GM PACK PO ONE (11:00)
[2022-05-11 12:06] VITALS: BP 157/67
== END 2022-05-11 14:10 | DRG 871 ==
LOC: N.ED 15:19 → N.EDINP 18:18 → N.5E 21:19
PROVIDERS: ADMIT Internal Medicine; ATTEND Internal Medicine